=== PATIENT | male | born 2000 | race Two or more races ===

== ENCOUNTER 2018-06-25 05:56 | Emergency (ER) | payer BC ==
[~2018-06-25] VITALS: Ht 167.6 cm; Wt 80.0 kg
[2018-06-25] MEDS ORDERED: ONDANSETRON ODT 4 MG ONE (06:13)
[2018-06-25] MEDS ORDERED: ONDANSETRON ODT 4 MG PO ONE (06:30)
[2018-06-25] MEDS ORDERED: FAMOTIDINE 20 MG TABLET PO ONE (08:00)
[2018-06-25] MEDS ORDERED: FAMOTIDINE 20 MG TABLET ONE (08:12)
[2018-06-25 08:25] LABS: BASOPHILS # (AUTO) 0.02 x10^3/uL (0-0.3); BASOPHILS % (AUTO) 0 % (0-1); EOSINOPHILS % (AUTO) 0 % (1-7); LYMPHOCYTES # (AUTO) 0.59 x10^3/uL (1-6.1); LYMPHOCYTES % (AUTO) 5 % (22-44); MD NO; MEAN CORPUSCULAR HEMOGLOBIN 30.6 pg (27.5-34.5); MEAN PLATELET VOLUME 8.4 fL (7.4-10.4); MONOCYTES # (AUTO) 0.47 x10^3/uL (0-1.4); MONOCYTES % (AUTO) 4 % (2-9); NEUTROPHILS # (AUTO) 11.52 x10^3/uL (1.8-8.0); NEUTROPHILS % (AUTO) 91 % (42-75); PLATELET COUNT 197 x10^3/uL (130-400); RED BLOOD COUNT 5.05 x10^6/uL (4.38-5.82); RED CELL DISTRIBUTION WIDTH 13.5 % (9.4-14.8)
[2018-06-25 08:34] LABS: ALBUMIN 4.5 g/dL (3.4-5.0); ANION GAP 11 mmol/L (5-15); CALCIUM 9.2 mg/dL (8.5-10.1); CHLORIDE 107 mmol/L (98-107); CREATININE 0.99 mg/dL (0.7-1.3)
[2018-06-25 09:09] VITALS: BP 123/60
== END 2018-06-25 09:45 | disposition home or self-care (01) ==
LOC: ED 09:30
DX: K29.20 Alcoholic gastritis without bleeding (principal)
CPT/HCPCS: 36415; 80048; 82040; 83690; 85025; 93005; 99285; Q0162